=== PATIENT | male | born 1950 | race Caucasian/White ===

== ENCOUNTER → 2016-06-04 | Outpatient (CLI) | payer BC | LOC: FIMAGING 11:00 | PROVIDERS: ATTEND Nurse Practitioner Family | DX: M25.571 Pain in right ankle and joints of right foot (principal); M67.471 Ganglion, right ankle and foot ==

== ENCOUNTER → 2017-05-06 | Outpatient (CLI) | payer BC | LOC: FIMAGING 11:25 | PROVIDERS: ATTEND Physician Assistant Medical | DX: R22.43 Localized swelling, mass and lump, lower limb, bilateral (principal) ==

== ENCOUNTER → 2017-11-15 | Outpatient (CLI) | payer BC | LOC: FIMAGING 16:00 | DX: M51.36 Other intervertebral disc degeneration, lumbar region (principal) ==

== ENCOUNTER → 2017-11-22 | Outpatient (CLI) | payer BC | LOC: FIMAGING 18:44 | DX: M23.51 Chronic instability of knee, right knee (principal); M23.251 Derangement of posterior horn of lateral meniscus due to old tear or injury, right knee; M22.41 Chondromalacia patellae, right knee; M24.851 Other specific joint derangements of right hip, not elsewhere classified ==